=== PATIENT | female | born 1995 | race Caucasian/White ===

== ENCOUNTER → 2016-06-25 | Outpatient (CLI) | payer MEDICAID | LOC: RAD 11:16 | PROVIDERS: ATTEND Nurse Practitioner Family | DX: M25.551 Pain in right hip (principal); M25.552 Pain in left hip | CPT/HCPCS: 73522 ==

== ENCOUNTER 2016-07-24 19:41 | Emergency (ER) | payer MEDICAID ==
--- NOTE | 2016-07-24 19:48 | ER Document Report ---
ED Medical Screen (RME) - General Stated Complaint: VAGINAL BLEEDING Information source: Patient Notes: Patient is about 7 weeks and has had vaginal bleeding for the past 2 days. Bleeding started to worsen today and she called EMS. . Patient does complain of lower pelvic cramping hx: none I have greeted and performed a rapid initial assessment of this patient. A comprehensive ED assessment and evaluation of the patient, analysis of test results and completion of the medical decision making process will be conducted by additional ED providers. TRAVEL OUTSIDE OF THE [place] IN LAST 30 DAYS: No - Related Data Allergies/Adverse Reactions: No Known Allergies Allergy (Unverified 04/13/16 20:31) Past Medical History Past Surgical History: Reports: Hx Gynecologic Surgery Physical Exam - Vital signs Vitals: Temp Pulse Resp BP Pulse Ox 98.0 F 89 16 113/62 98 07/24/16 20:11 07/24/16 20:11 07/24/16 20:11 07/24/16 20:11 07/24/16 20:11 - Abdominal Tenderness: Tender - Lower pelvic Course - Vital Signs Vital signs: Temp Pulse Resp BP Pulse Ox 98.0 F 89 16 113/62 98 07/24/16 20:11 07/24/16 20:11 07/24/16 20:11 07/24/16 20:11 07/24/16 20:11
[2016-07-24 20:14] VITALS: BP 113/62
[2016-07-24 21:29] LABS: ABSOLUTE EOSINOPHILS # (AUTO) 0.3 10^3/uL (0.0-0.6); ABSOLUTE MONOCYTES (AUTO) 0.7 10^3/uL (0.1-1.4); ABSOLUTE NEUT (AUTO) 7.2 10^3/uL (1.7-8.2); BASOPHILS % (AUTO) 0.4 % (0-2); EOSINOPHILS % (AUTO) 2.3 % (0-6); HEMATOCRIT 38.2 % (36.0-47.0); HGB HCT DIFFERENCE 0.8; MEAN CORPUSCULAR HEMOGLOBIN 28.9 pg (27.0-33.4); MEAN CORPUSCULAR VOLUME 85 fl (80-97); MONOCYTES % (AUTO) 6.3 % (3-13); WHITE BLOOD COUNT 11.2 10^3/uL (4.0-10.5)
[2016-07-24 21:41] LABS: ALANINE AMINOTRANSFERASE 28 U/L (5-35); ALBUMIN 4.8 g/dL (3.7-5.6); ALKALINE PHOSPHATASE 47 U/L (50-135); ANION GAP 12 (5-19); ASPARTATE AMINO TRANSFERASE 20 U/L (5-30); BILIRUBIN,TOTAL 0.4 mg/dL (0.2-1.3); BLOOD UREA NITROGEN 12 mg/dL (7-20); CALCIUM 10.1 mg/dL (8.4-10.2); CARBON DIOXIDE 23 mmol/L (22-30); CHLORIDE 104 mmol/L (98-107); CREATININE RESULT 0.69 mg/dL (0.52-1.25); GLUCOSE 82 mg/dL (75-110); POTASSIUM 3.7 mmol/L (3.6-5.0); SODIUM 139.3 mmol/L (137-145); TOTAL PROTEIN 7.6 g/dL (6.3-8.2)
[2016-07-24] MEDS ORDERED: ACETAMINOPHEN 325 MG TABLET PO ONE (23:09)
--- NOTE | 2016-07-24 23:09 | ER Document Report ---
ED General - General Chief Complaint: Vaginal Bleeding Stated Complaint: VAGINAL BLEEDING Notes: Patient is a 20 year old female who presents with complaint of vaginal bleeding. No fevers. No vomiting. No diarrhea. This is her second . She has not yet seen an OB doctor. She has not had an ultrasound. She has some pelvic cramping associated with it. She is taking vitamins. She does still smoke but says she is trying to quit. Her first ended in a normal and she did not have bleeding during it. She says she is passing small clots and some blood. Bleeding is been ongoing for 3 days. TRAVEL OUTSIDE OF THE [place] IN LAST 30 DAYS: No - Related Data Allergies/Adverse Reactions: No Known Allergies Allergy (Verified 07/24/16 20:34) Past Medical History - General Information source: Patient - Social History Smoking Status: Never Smoker Frequency of alcohol use: None Drug Abuse: None Family History: None Patient has suicidal ideation: No Patient has homicidal ideation: No Renal/ Medical History: Denies: Hx Peritoneal Dialysis Past Surgical History: Reports: Hx Gynecologic Surgery Review of Systems - Review of Systems Notes: My Normal Review Basic REVIEW OF SYSTEMS: CONSTITUTIONAL : Denies fever, chills, or sweats. Denies recent illness.n. RESPIRATORY: Denies cough, cold, or chest congestion. Denies shortness of breath, difficulty breathing, or wheezing. GASTROINTESTINAL: Denies abdominal pain. Denies nausea, vomiting, or diarrhea. Denies constipation. Last BM: GENITOURINARY: Denies difficulty urinating, painful urination, burning, frequency, or blood in urine. FEMALE GENITOURINARY: Vaginal bleeding. . MUSCULOSKELETAL: Denies neck or back pain or joint pain or swelling. SKIN: Denies rash or skin lesions. NEUROLOGICAL: Denies altered mental status or loss of consciousness. Denies headache. Denies weakness or paralysis or loss of use of either side. Denies problems with gait or speech. Denies sensory or motor loss. ALL OTHER SYSTEMS REVIEWED AND NEGATIVE. Physical Exam - Vital signs Vitals: Temp Pulse Resp BP Pulse Ox 98.0 F 89 16 113/62 98 07/24/16 20:11 07/24/16 20:11 07/24/16 20:11 07/24/16 20:11 07/24/16 20:11 - Notes Notes: General Appearance: Well nourished, alert, cooperative, no acute distress, no obvious discomfort. Well-appearing. Vitals: reviewed, See vital signs table. Head: no swelling or tenderness to the head Eyes: PERRL, EOMI, Conjuctiva clear Mouth: No decreasd moisture Lungs: No wheezing, No rales, No rhonci, No accessory muscle use, good air exchange bilaterally. Heart: Normal rate, Regular rythm, No murmur, no rub Abdomen: Normal BS, soft, No rigidity, mild lower abdominal tenderness to palpation, No guarding, no rebound, no abdominal masses, no organomegaly Extremities: strength 5/5 in all extremities, good pulses in all extremities, no swelling or tenderness in the extremities, no edema. Skin: warm, dry, appropriate color, no rash Neuro: speech clear, oriented x 3, normal affect, responds appropriately to questions. Course - Vital Signs Vital signs: Temp Pulse Resp BP Pulse Ox 98.0 F 89 16 113/62 98 07/24/16 20:11 07/24/16 20:11 07/24/16 20:11 07/24/16 20:11 07/24/16 20:11 - Laboratory Result Diagrams: 07/24/16 21:16 07/24/16 21:16 Laboratory results interpreted by me: 07/24/16 07/24/16 21:16 21:16 WBC 11.2 H Alkaline Phosphatase 47 L Beta HCG, Quant 8619.60 H - Transfer of Care Notes: 07/25/16 04:23 Patient's ultrasound shows just a flicker but no measurable heart rate. She does have an IUP. I informed her that we cannot fully rule out the possibility miscarriage at this time. Informed her she should follow-up with OB doctor or return to ER in 3-4 days for repeat hCG level. Encourage return to ER immediately if she has heavy bleeding or worsening pain. Patient agrees with plan will be discharged home. Dictation of this chart was performed using voice recognition software; therefore, there may be some unintended grammatical errors. Discharge - Discharge Clinical Impression: Vaginal bleeding in Qualifiers: Trimester: first trimester Qualified Code(s): O46.91 - Antepartum hemorrhage, unspecified, first trimester Condition: Good Disposition: HOME, SELF-CARE Additional Instructions: Please follow up with your OB doctor or return to the ER in 3-4 days to have your HCG level rechecked to better determine if you are having a miscarriage. Please avoid sexual activity or heavy lifting until cleared by your OB physician. Please continue to take vitamins. Please stop smoking. Please return to the ER immediately if you have heavy bleeding, increasing pain , or feel unwell. Referrals: OK THOMPSON FNP [Primary Care Provider] - Follow up in 3-5 days
== END 2016-07-25 04:37 | disposition home or self-care (01) ==
LOC: ER 19:41
DX: O20.9 Hemorrhage in early pregnancy, unspecified (principal); O26.891 Other specified pregnancy related conditions, first trimester; R10.2 Pelvic and perineal pain; Z3A.00 Weeks of gestation of pregnancy not specified; Z79.899 Other long term (current) drug therapy
CPT/HCPCS: 99284; 86900; 86901; 36415; 84702; 85025; 80053; 76817; 93976; J3490